=== PATIENT | female | born 1970 | race African-American/Black ===

== ENCOUNTER → 2021-05-25 07:40 | Outpatient (CLI) | payer OTHER, SELFPAY ==
--- NOTE | ~2021-05-25 | MR_ITS ---
EXAMINATION: MR brain/brain stem wo/w con DATE: 05/25/2021 09:22 INDICATION: Demyelinating disease of central nervous system. TECHNIQUE: Magnetic resonance imaging (MRI) of the brain and brainstem was performed without with 9 m L MultiHance intravenous contrast. Sequences included sagittal and axial T1-weighted FLAIR, axial T1- weighted FSE, axial diffusion-weighted FS EPI, sagittal T2-weighted FLAIR, axial T2*-weighted GRE, ax ial T2-weighted FLAIR Propeller, and axial T2-weighted Propeller. Postcontrast sequences included axi al, coronal, and sagittal T1-weighted FSE. Apparent diffusion coefficient (ADC) maps were created. COMPARISON: None. FINDINGS: There are 4 foci of increased T2-weighted signal intensity in the cerebral white matter, wh ich is within normal limits for the patient's age. There is no intracranial hemorrhage, acute infarct ion, or abnormal intracranial mass lesion. The ventricles are normal in size. The mastoid air cells a re normal. The paranasal sinuses are clear. The orbits are normal. IMPRESSION: 1. Normal aging brain. Reviewed, dictated and finalized at location B. ST LOGISTICS MANAGER IMPRESSION: 1. Normal aging brain.
--- NOTE | ~2021-05-25 | MR_ITS ---
EXAMINATION: MR cervical spine wo/w con DATE: 05/25/2021 09:10 INDICATION: Demyelinating disease of central nervous system. TECHNIQUE: Magnetic resonance imaging (MRI) of the cervical spine was performed without and with 9 mL MultiHance intravenous contrast. Sequences included sagittal and axial T2-weighted FSE, sagittal STI R FSE, and sagittal and axial T1-weighted FSE. Postcontrast sequences included sagittal and axial T1- weighted FS FSE. COMPARISON: None FINDINGS: There is 10 degrees levoscoliosis of cervical spine. Vertebral body heights and interverteb ral disc heights are normal. The spinal cord signal intensity is normal. The following disc levels ar e specifically discussed: C2-C3: The disc does not extend beyond the endplate margin. There is mild left uncovertebral joint os teoarthritis. There is mild bilateral facet joint osteoarthritis. There is no neural foraminal stenos is. There is no central canal stenosis. C3-C4: The disc does not extend beyond the endplate margin. There is no uncovertebral joint osteoarth ritis. There is moderate right facet joint osteoarthritis. There is mild right neural foraminal steno sis. There is no central canal stenosis. C4-C5: The disc does not extend beyond the endplate margin. There is no uncovertebral joint osteoarth ritis. There is mild bilateral facet joint osteoarthritis. There is no neural foraminal stenosis. The re is no central canal stenosis. C5-C6: The disc does not extend beyond the endplate margin. There is no uncovertebral joint osteoarth ritis. There is mild right facet joint osteoarthritis. There is no neural foraminal stenosis. There i s no central canal stenosis. C6-C7: The disc does not extend beyond the endplate margin. There is mild left uncovertebral joint os teoarthritis. There is mild bilateral facet joint osteoarthritis. There is mild left neural foraminal stenosis. There is no central canal stenosis. C7-T1: The disc does not extend beyond the endplate margin. There is no uncovertebral joint osteoarth ritis. There is mild bilateral facet joint osteoarthritis. There is mild bilateral neural foraminal s tenosis. There is no central canal stenosis. IMPRESSION: 1. Normal spinal cord. 2. Mild cervical spondylosis. 3. Cervical levoscoliosis. Reviewed, dictated and finalized at location B. ER OPERATOR
[2021-05-25 08:14] LABS: Estimated Glomerular Filt Rate > 60
== END ==
DX: G37.9 Demyelinating disease of central nervous system, unspecified (principal); M47.892 Other spondylosis, cervical region
CPT/HCPCS: 70553; 72156; A9577